=== PATIENT | male | born 1990 | race Caucasian/White ===

== ENCOUNTER 2020-07-06 18:10 | Emergency (ER) | payer OTHER ==
[~2020-07-06] VITALS: Ht 177.8 cm; Wt 91.6 kg
[2020-07-06] MEDS ORDERED: DOXYCYCLINE 10100 MG PO (19:59)
[2020-07-06] MEDS ORDERED: IBUPROFEN 800800 M1 PO (19:59)
[2020-07-06] MEDS ORDERED: NORCO 5-325 TA1 EAC2 PO (19:59)
[2020-07-06 20:22] VITALS: BP 141/81
== END 2020-07-06 20:22 | disposition home or self-care (01) ==
LOC: M.ERS 18:10
DX: S91.301A Unspecified open wound, right foot, initial encounter (principal); M79.671 Pain in right foot; Z98.890 Other specified postprocedural states; X58.XXXA Exposure to other specified factors, initial encounter; Y93.89 Activity, other specified; Y92.89 Other specified places as the place of occurrence of the external cause; Y99.8 Other external cause status